=== PATIENT | female | born 1980 | race Caucasian/White ===

== ENCOUNTER 2021-05-28 07:16 | Observation (INO) | payer OTHER ==
[2021-05-28] MEDS ORDERED: SODIUM CHLORIDE 0.9% 1,000 ML IV STA (07:28)
[2021-05-28] MEDS ORDERED: IBUPROFEN 600 MG TAB PO STA (07:44)
[2021-05-28] MEDS ORDERED: cefTRIAXone IN SWFI 1,000 MG/10 ML SYRINGE IVP STA (07:44)
[2021-05-28] MEDS ORDERED: VANCOMYCIN IV PER PHARMACY 1 EACH MISC MISCELLANE PRN (07:45)
[2021-05-28] MEDS ORDERED: VANCOMYCIN 1,500 MG in SODIUM CHLORIDE 0.9% 250 ML IVPB STA (07:47)
--- NOTE | 2021-05-28 08:25 | ED ---
General Adult HPI - General Chief complaint: Recheck/Abnormal Lab/Rx Stated complaint: Breast Pain Time Seen by Provider: 05/28/21 07:21 Source: patient, family, RN notes reviewed, old records reviewed Mode of arrival: ambulatory Limitations: no limitations - History of Present Illness Initial comments: 40-year-old female otherwise healthy presenting with right breast pain and swelling which she has noted over the past several days. Patient initially noted tenderness and subsequently noticed a black swollen area below the right nipple. She is a nondiabetic, no chronic medical conditions. She has had low grade fevers. No vomiting. No abdominal pain. No URI symptoms. No dysuria. - Related Data Home Medications Medication Instructions Recorded Confirmed No Known Home Medications 05/28/21 05/28/21 Allergies Allergy/AdvReac Type Severity Reaction Status Date / Time codeine AdvReac Vomiting Verified 05/28/21 08:14 [From Tylenol-Codeine #3] Review of Systems ROS Statement: Those systems with pertinent positive or pertinent negative responses have been documented in the HPI. ROS Other: All systems not noted in ROS Statement are negative. Past Medical History Past Medical History: No Reported History History of Any Multi-Drug Resistant Organisms: None Reported Past Surgical History: Section Past Psychological History: No Psychological Hx Reported Smoking Status: Current every day smoker Past Alcohol Use History: Rare Past Drug Use History: None Reported General Exam Limitations: no limitations General appearance: alert, in no apparent distress Head exam: Present: atraumatic, normocephalic Eye exam: Present: normal appearance, PERRL ENT exam: Present: mucous membranes dry Neck exam: Present: normal inspection. Absent: tenderness, meningismus Respiratory exam: Present: normal lung sounds bilaterally. Absent: respiratory distress Cardiovascular Exam: Present: normal rhythm, tachycardia GI/Abdominal exam: Present: soft. Absent: distended, tenderness, guarding, rebound Extremities exam: Present: normal inspection, normal capillary refill. Absent: pedal edema Neurological exam: Present: alert, oriented X3 Psychiatric exam: Present: normal affect, normal mood Skin exam: Present: warm, other (Right breast exam: There is a large fluctuant area just inferior to the right nipple approximately 4 cm. The remainder of the lateral aspect of the breast is erythematous consistent with an adjacent cellulitis. No drainage at this time.) Course Vital Signs 05/28/21 05/28/21 07:22 08:25 Temperature 100.7 F H Pulse Rate 131 H Respiratory 18 18 Rate Blood Pressure 141/85 O2 Sat by Pulse 97 Oximetry Medical Decision Making - Medical Decision Making 40-year-old female presenting with pain and swelling to the right breast. She has a large abscess with associated cellulitis. She is febrile and tachycardic upon arrival. Blood cultures are obtained, IV antibiotics are initiated. She has an elevated white blood cell count. I did discuss case with Dr. Olvera covering for general surgery who will admit this patient for incision and drainage. - Lab Data Result diagrams: 05/28/21 08:32 05/28/21 08:32 Lab Results 05/28/21 05/28/21 05/28/21 Range/Units 08:32 08:32 08:32 WBC 17.8 H (3.8-10.6) k/uL RBC 4.37 (3.80-5.40) m/uL Hgb 11.6 (11.4-16.0) gm/dL Hct 34.5 (34.0-46.0) % MCV 78.9 L (80.0-100.0) fL MCH 26.5 (25.0-35.0) pg MCHC 33.5 (31.0-37.0) g/dL RDW 13.6 (11.5-15.5) % Plt Count 434 (150-450) k/uL MPV 7.0 Neutrophils % 84 % Lymphocytes % 9 % Monocytes % 6 % Eosinophils % 0 % Basophils % 0 % Neutrophils # 14.8 H (1.3-7.7) k/uL Lymphocytes # 1.6 (1.0-4.8) k/uL Monocytes # 1.0 (0-1.0) k/uL Eosinophils # 0.1 (0-0.7) k/uL Basophils # 0.1 (0-0.2) k/uL PT (9.0-12.0) sec INR (<1.2) APTT (22.0-30.0) sec Sodium 138 (137-145) mmol/L Potassium 3.5 (3.5-5.1) mmol/L Chloride 101 (98-107) mmol/L Carbon Dioxide 27 (22-30) mmol/L Anion Gap 10 mmol/L BUN 4 L (7-17) mg/dL Creatinine 0.47 L (0.52-1.04) mg/dL Est GFR (CKD-EPI)AfAm >90 (>60 ml/min/1.73 sqM) Est GFR (CKD-EPI)NonAf >90 (>60 ml/min/1.73 sqM) Glucose 174 H (74-99) mg/dL Plasma Lactic Acid Colt 0.8 (0.7-2.0) mmol/L Calcium 9.8 (8.4-10.2) mg/dL Total Bilirubin 0.5 (0.2-1.3) mg/dL AST 28 (14-36) U/L ALT 31 (4-34) U/L Alkaline Phosphatase 128 H (38-126) U/L Total Protein 7.1 (6.3-8.2) g/dL Albumin 3.9 (3.5-5.0) g/dL Urine Color Urine Appearance (Clear) Urine pH (5.0-8.0) Ur Specific [place] (1.001-1.035) Urine Protein (Negative) Urine Glucose (UA) (Negative) Urine Ketones (Negative) Urine Blood (Negative) Urine Nitrite (Negative) Urine Bilirubin (Negative) Urine Urobilinogen (<2.0) mg/dL Ur Leukocyte Esterase (Negative) Urine RBC (0-5) /hpf Urine WBC (0-5) /hpf Ur Squamous Epith Cells (0-4) /hpf Urine Bacteria (None) /hpf Urine HCG, Qual (Not Detectd) 05/28/21 05/28/21 05/28/21 Range/Units 08:32 08:32 08:32 WBC (3.8-10.6) k/uL RBC (3.80-5.40) m/uL Hgb (11.4-16.0) gm/dL Hct (34.0-46.0) % MCV (80.0-100.0) fL MCH (25.0-35.0) pg MCHC (31.0-37.0) g/dL RDW (11.5-15.5) % Plt Count (150-450) k/uL MPV Neutrophils % % Lymphocytes % % Monocytes % % Eosinophils % % Basophils % % Neutrophils # (1.3-7.7) k/uL Lymphocytes # (1.0-4.8) k/uL Monocytes # (0-1.0) k/uL Eosinophils # (0-0.7) k/uL Basophils # (0-0.2) k/uL PT 10.8 (9.0-12.0) sec INR 1.0 (<1.2) APTT 23.0 (22.0-30.0) sec Sodium (137-145) mmol/L Potassium (3.5-5.1) mmol/L Chloride (98-107) mmol/L Carbon Dioxide (22-30) mmol/L Anion Gap mmol/L BUN (7-17) mg/dL Creatinine (0.52-1.04) mg/dL Est GFR (CKD-EPI)AfAm (>60 ml/min/1.73 sqM) Est GFR (CKD-EPI)NonAf (>60 ml/min/1.73 sqM) Glucose (74-99) mg/dL Plasma Lactic Acid Colt (0.7-2.0) mmol/L Calcium (8.4-10.2) mg/dL Total Bilirubin (0.2-1.3) mg/dL AST (14-36) U/L ALT (4-34) U/L Alkaline Phosphatase (38-126) U/L Total Protein (6.3-8.2) g/dL Albumin (3.5-5.0) g/dL Urine Color Light Yellow Urine Appearance Clear (Clear) Urine pH 6.0 (5.0-8.0) Ur Specific [place] 1.002 (1.001-1.035) Urine Protein Negative (Negative) Urine Glucose (UA) Negative (Negative) Urine Ketones Trace H (Negative) Urine Blood Negative (Negative) Urine Nitrite Negative (Negative) Urine Bilirubin Negative (Negative) Urine Urobilinogen <2.0 (<2.0) mg/dL Ur Leukocyte Esterase Small H (Negative) Urine RBC 2 (0-5) /hpf Urine WBC 6 H (0-5) /hpf Ur Squamous Epith Cells 2 (0-4) /hpf Urine Bacteria Rare H (None) /hpf Urine HCG, Qual Not Detected (Not Detectd) Disposition Clinical Impression: Cellulitis, Breast abscess Disposition: ADMITTED IP TO THIS HOSP Condition: Stable Is patient prescribed a controlled substance at d/c from ED?: No Referrals: Nidia Santamaria DO [Primary Care Provider] - 1-2 days Decision to Admit Reason: Admit from EC Decision Date: 05/28/21 Decision Time: 09:36
[2021-05-28 08:40] LABS: Basophils # (A) 0.1 k/uL (0-0.2); Basophils % (A) 0 %; Eosinophils # (A) 0.1 k/uL (0-0.7); Eosinophils % (A) 0 %; HCT 34.5 % (34.0-46.0); HGB 11.6 gm/dL (11.4-16.0); Lymphocytes # (A) 1.6 k/uL (1.0-4.8); Lymphocytes % (A) 9 %; MCH 26.5 pg (25.0-35.0); MCHC 33.5 g/dL (31.0-37.0); MCV 78.9 fL (80.0-100.0); Monocytes % (A) 6 %; Neutrophils # (A) 14.8 k/uL (1.3-7.7); Neutrophils % (A) 84 %; Platelet Count 434 k/uL (150-450); RBC 4.37 m/uL (3.80-5.40); RDW 13.6 % (11.5-15.5); WBC 17.8 k/uL (3.8-10.6)
[2021-05-28 08:50] LABS: Prothrombin Time 10.8 sec (9.0-12.0)
[2021-05-28 08:57] LABS: Appearance,Urine Clear (Clear); Bacteria,Urine Rare /hpf; Bilirubin,Urine Negative (Negative); Blood,Urine Negative (Negative); Color,Urine Light Yellow; Glucose,Urine (UA) Negative (Negative); Ketones,Urine Trace (Negative); Leukocyte Esterase,Urine Small (Negative); Nitrite,Urine Negative (Negative); Protein,Urine Negative (Negative); RBC,Urine 2 /hpf (0-5); Specific Gravity,Urine 1.002 (1.001-1.035); Squamous Epithelial Cell,Urine 2 /hpf (0-4); Urobilinogen,Urine <2.0 mg/dL (<2.0); WBC,Urine 6 /hpf (0-5)
[2021-05-28 09:00] LABS: ALT 31 U/L (4-34); AST 28 U/L (14-36); African American GFR (CKD) >90 (>60 ml/min/1.73 sqM); Albumin 3.9 g/dL (3.5-5.0); Alkaline Phosphatase 128 U/L (38-126); Anion Gap 10 mmol/L; Blood Urea Nitrogen 4 mg/dL (7-17); Calcium 9.8 mg/dL (8.4-10.2); Carbon Dioxide 27 mmol/L (22-30); Chloride 101 mmol/L (98-107); Glucose 174 mg/dL (74-99); Non-African American GFR(CKD) >90 (>60 ml/min/1.73 sqM); Potassium 3.5 mmol/L (3.5-5.1); Sodium 138 mmol/L (137-145); Total Bilirubin 0.5 mg/dL (0.2-1.3); Total Protein 7.1 g/dL (6.3-8.2)
[2021-05-28] MEDS ORDERED: HYDROmorphone 0.5 MG/0.5 ML SYRINGE IVP PRN (09:33)
[2021-05-28] MEDS ORDERED: NALOXONE 0.4 MG/ML 1 ML VIAL IV PRN (09:33)
[2021-05-28] MEDS: SODIUM CHLORIDE 0.9% 1,000 ML IV SCH ×2 (09:45→20:38)
--- NOTE | 2021-05-28 13:30 | P.GSHP ---
History of Present Illness H&P Date: 05/28/21 CHIEF COMPLAINT: Right breast abscess HISTORY OF PRESENT ILLNESS: This is a 40-year-old female with a known past medical history of nicotine dependence. She presents to the hospital with complaints of right breast pain and swelling over the last 5 days. Patient has an ulceration at the 6 o'clock position on the right breast. It has a blackened area. She's been having low-grade fevers. She denies any nausea or vomiting. She did have a temp of 100.7 and was tachycardic on admission. She has been started on IV antibiotics. Patient seen and examined with Dr. mcneal PAST MEDICAL HISTORY: See list. PAST SURGICAL HISTORY: See list. MEDICATIONS: See list. ALLERGIES: See list. SOCIAL HISTORY: No illicit drug use. REVIEW OF SYSTEMS: CONSTITUTIONAL: Denies fever or chills. HEENT: Denies blurred vision, vision changes, or eye pain. Denies hemoptysis CARDIOVASCULAR: Denies chest pain or pressure. RESPIRATORY: No shortness of breath. GASTROINTESTINAL: See HPI for pertinent findings HEMATOLOGIC: Denies bleeding disorders. GENITOURINARY: Denies any blood in urine or increased urinary frequency. SKIN: Denies pruitis. Denies rash. PHYSICAL EXAM: VITAL SIGNS: Reviewed GENERAL: Well-developed in no acute distress. HEENT: No sclera icterus. Extraocular movements grossly intact. Moist buccal mucosa. Head is atraumatic, normocephalic. No nasal drainage. ABDOMEN: Soft. Nondistended. Nondistended NEUROLOGIC: Alert and oriented. Cranial nerves II through XII grossly intact. Breast: Right breast 6 o'clock position underneath the nipple there is a abscess about the size of a quarter with surrounding erythema. The area is also blackened. LABORATORY DATA: WBC 17.8 hemoglobin 11.6 sodium 138 potassium is 3.5 creatinine 0.47 lactic 0.8 IMAGING: ASSESSMENT: 1. Right breast abscess PLAN: -Patient scheduled for I&D of right breast with Dr. Mcneal tomorrow, 05/29/2021 -Keep patient nothing by mouth after midnight -Check right breast ultrasound -Continue IV antibiotics -Replace potassium -Consult medical service -Continue pain medication as needed Physician [employer] note has been reviewed by physician. Signing provider agrees with the documented findings, assessment, and plan of care. Past Medical History Past Medical History: No Reported History History of Any Multi-Drug Resistant Organisms: None Reported Past Surgical History: Section Past Anesthesia/Blood Transfusion Reactions: No Reported Reaction Past Psychological History: No Psychological Hx Reported Smoking Status: Current every day smoker Past Alcohol Use History: Rare Past Drug Use History: None Reported - Past Family History Mother Family Medical History: No Reported History Father Additional Family Medical History / Comment(s): cardiac heat stroke Medications and Allergies Home Medications Medication Instructions Recorded Confirmed Type No Known Home Medications 05/28/21 05/28/21 History Allergies Allergy/AdvReac Type Severity Reaction Status Date / Time codeine AdvReac Vomiting Verified 05/28/21 08:14 [From Tylenol-Codeine #3] Surgical - Exam Vital Signs Temp Pulse Resp BP Pulse Ox 100.7 F H 131 H 18 141/85 97 05/28/21 07:22 05/28/21 07:22 05/28/21 07:22 05/28/21 07:22 05/28/21 07:22 Results - Labs 05/28/21 08:32 05/28/21 08:32 Abnormal Lab Results - Last 24 Hours (Table) 05/28/21 05/28/21 05/28/21 Range/Units 08:32 08:32 08:32 WBC 17.8 H (3.8-10.6) k/uL MCV 78.9 L (80.0-100.0) fL Neutrophils # 14.8 H (1.3-7.7) k/uL BUN 4 L (7-17) mg/dL Creatinine 0.47 L (0.52-1.04) mg/dL Glucose 174 H (74-99) mg/dL Alkaline Phosphatase 128 H (38-126) U/L Urine Ketones Trace H (Negative) Ur Leukocyte Esterase Small H (Negative) Urine WBC 6 H (0-5) /hpf Urine Bacteria Rare H (None) /hpf Diabetes panel 05/28/21 Range/Units 08:32 Sodium 138 (137-145) mmol/L Potassium 3.5 (3.5-5.1) mmol/L Chloride 101 (98-107) mmol/L Carbon Dioxide 27 (22-30) mmol/L BUN 4 L (7-17) mg/dL Creatinine 0.47 L (0.52-1.04) mg/dL Glucose 174 H (74-99) mg/dL Calcium 9.8 (8.4-10.2) mg/dL AST 28 (14-36) U/L ALT 31 (4-34) U/L Alkaline Phosphatase 128 H (38-126) U/L Total Protein 7.1 (6.3-8.2) g/dL Albumin 3.9 (3.5-5.0) g/dL Calcium panel 05/28/21 Range/Units 08:32 Calcium 9.8 (8.4-10.2) mg/dL Albumin 3.9 (3.5-5.0) g/dL Pituitary panel 05/28/21 Range/Units 08:32 Sodium 138 (137-145) mmol/L Potassium 3.5 (3.5-5.1) mmol/L Chloride 101 (98-107) mmol/L Carbon Dioxide 27 (22-30) mmol/L BUN 4 L (7-17) mg/dL Creatinine 0.47 L (0.52-1.04) mg/dL Glucose 174 H (74-99) mg/dL Calcium 9.8 (8.4-10.2) mg/dL Adrenal panel 05/28/21 Range/Units 08:32 Sodium 138 (137-145) mmol/L Potassium 3.5 (3.5-5.1) mmol/L Chloride 101 (98-107) mmol/L Carbon Dioxide 27 (22-30) mmol/L BUN 4 L (7-17) mg/dL Creatinine 0.47 L (0.52-1.04) mg/dL Glucose 174 H (74-99) mg/dL Calcium 9.8 (8.4-10.2) mg/dL Total Bilirubin 0.5 (0.2-1.3) mg/dL AST 28 (14-36) U/L ALT 31 (4-34) U/L Alkaline Phosphatase 128 H (38-126) U/L Total Protein 7.1 (6.3-8.2) g/dL Albumin 3.9 (3.5-5.0) g/dL
[2021-05-28] MEDS ORDERED: POTASSIUM CHLORIDE ER 20 MEQ TAB.ER PO STA (13:31)
[2021-05-28] MEDS ORDERED: ONDANSETRON 4 MG/2 ML VIAL IVP PRN (13:32)
[2021-05-28] MEDS: PANTOPRAZOLE 40 MG TABLET PO SCH (13:43)
[2021-05-28] MEDS ORDERED: NICOTINE 14MG/24HR PATCH TRANSDERM PRN (14:02)
--- NOTE | 2021-05-28 14:25 | USB ---
Reason for exam: clinical finding. US Breast RT Right complete breast ultrasound includes all four quadrants, the retroareolar region and axilla. Finding demonstrates a 6.8 x 4.0cm lesion at the posterior nipple. Complex collection right posterior nipple hard red breast open sore 6 o'clock. Finding consistent with an abscess. ASSESSMENT: Suspicious, BI-RAD 4 RECOMMENDATION: Surgical consultation of the right breast.
--- NOTE | 2021-05-28 16:13 | P.CONS ---
History of Present Illness - Reason for Consult Breast abscess antibiotic management - History of Present Illness Patient is a 40-year-old female came in with complaints of the right breast swelling has been going on for about couple days with severe pain. Patient has some soreness which has been going on for about 5 days but redness and swelling started yesterday there was an ulceration and patient has a big abscess which intubated patient had temperature of 100.7 tachycardic on admission patient was septic. Patient was started on IV antibiotics that is vancomycin. Patient was also given a dose of Rocephin in ER. Patient denied any recent injury but couple weeks ago patient was in pool for long period of time. REVIEW OF SYSTEMS: CONSTITUTIONAL: No fever, no malaise, no fatigue. HEENT: No recent visual problems or hearing problems. Denied any sore throat. CARDIOVASCULAR: No chest pain, orthopnea, PND, no palpitations, no syncope. PULMONARY: No shortness of breath, no cough, no hemoptysis. GASTROINTESTINAL: No diarrhea, no nausea, no vomiting, no abdominal pain. NEUROLOGICAL: No headaches, no weakness, no numbness. HEMATOLOGICAL: Denies any bleeding or petechiae. GENITOURINARY: Denies any burning micturition, frequency, or urgency. MUSCULOSKELETAL/RHEUMATOLOGICAL: Denies any joint pain, swelling, or any muscle pain. ENDOCRINE: Denies any polyuria or polydipsia. The rest of the 14-point review of systems is negative. PHYSICAL EXAMINATION: GENERAL: The patient is alert and oriented x3, not in any acute distress. Well developed, well nourished. HEENT: Pupils are round and equally reacting to light. EOMI. No scleral icterus. No conjunctival pallor. Normocephalic, atraumatic. No pharyngeal erythema. No thyromegaly. CARDIOVASCULAR: S1 and S2 present. No murmurs, rubs, or gallops. Breasts: Significantly swollen on the right side and there is a small ulceration with a blackish discoloration below the nipple area significant swelling or tenderness local is of temperature. PULMONARY: Chest is clear to auscultation, no wheezing or crackles. ABDOMEN: Soft, nontender, nondistended, normoactive bowel sounds. No palpable organomegaly. MUSCULOSKELETAL: No joint swelling or deformity. EXTREMITIES: No cyanosis, clubbing, or pedal edema. NEUROLOGICAL: Gross neurological examination did not reveal any focal deficits. SKIN: As mentioned above Assessment and plan Right breast abscess which will need incision and drainage. It is appropriate that that we continue vancomycin to cover skin art. Cultures will be obtained from IND -Sepsis secondary to breast abscess: Patient is on IV fluids which will be continued -GI prophylaxis with Protonix Past Medical History Past Medical History: No Reported History History of Any Multi-Drug Resistant Organisms: None Reported Past Surgical History: Section Past Anesthesia/Blood Transfusion Reactions: No Reported Reaction Past Psychological History: No Psychological Hx Reported Smoking Status: Current every day smoker Past Alcohol Use History: Rare Past Drug Use History: None Reported - Past Family History Mother Family Medical History: No Reported History Father Additional Family Medical History / Comment(s): cardiac heat stroke Medications and Allergies Home Medications Medication Instructions Recorded Confirmed Type No Known Home Medications 05/28/21 05/28/21 History Allergies Allergy/AdvReac Type Severity Reaction Status Date / Time codeine AdvReac Vomiting Verified 05/28/21 08:14 [From Tylenol-Codeine #3] Physical Exam Vitals: Vital Signs Temp Pulse Pulse Resp BP BP Pulse Ox 05/28/21 15:55 136/80 05/28/21 14:44 98.1 F 103 H 16 101/65 98 05/28/21 11:56 89 98 05/28/21 11:54 112 H 05/28/21 10:52 98.9 F 112 H 17 142/88 96 05/28/21 10:17 99.7 F H 75 18 138/69 97 05/28/21 09:45 99.7 F H 18 05/28/21 08:25 18 05/28/21 07:22 100.7 F H 131 H 18 141/85 97 Intake and Output 05/28/21 05/28/21 05/28/21 06:59 14:59 22:59 Other: Weight 98.3 kg Results CBC & Chem 7: 05/28/21 08:32 05/28/21 08:32 Labs: Abnormal Lab Results - Last 24 Hours (Table) 05/28/21 05/28/21 05/28/21 Range/Units 08:32 08:32 08:32 WBC 17.8 H (3.8-10.6) k/uL MCV 78.9 L (80.0-100.0) fL Neutrophils # 14.8 H (1.3-7.7) k/uL BUN 4 L (7-17) mg/dL Creatinine 0.47 L (0.52-1.04) mg/dL Glucose 174 H (74-99) mg/dL Alkaline Phosphatase 128 H (38-126) U/L Urine Ketones Trace H (Negative) Ur Leukocyte Esterase Small H (Negative) Urine WBC 6 H (0-5) /hpf Urine Bacteria Rare H (None) /hpf
[2021-05-28] MEDS: VANCOMYCIN 1,500 MG in SODIUM CHLORIDE 0.9% 250 ML IVPB SCH ×2 (16:33→23:59)
[2021-05-28] MEDS: IBUPROFEN 400 MG TAB PO PRN (17:40)
[2021-05-28] MEDS: HEPARIN SODIUM,PORCINE/PF 5,000 UNIT/0.5 ML SYRINGE SQ SCH (20:38)
[2021-05-29] MEDS ORDERED: VANCOMYCIN TROUGH DUE 1 EACH MISC MISCELLANE ONE (07:00)
[2021-05-29 07:08] LABS: Basophils # (A) 0.1 k/uL (0-0.2); Basophils % (A) 1 %; Eosinophils # (A) 0.1 k/uL (0-0.7); Eosinophils % (A) 1 %; HCT 32.7 % (34.0-46.0); HGB 10.6 gm/dL (11.4-16.0); Hypochromasia Slight; Lymphocytes # (A) 1.5 k/uL (1.0-4.8); Lymphocytes % (A) 12 %; MCH 26.3 pg (25.0-35.0); MCHC 32.4 g/dL (31.0-37.0); MCV 81.2 fL (80.0-100.0); Monocytes # (A) 0.8 k/uL (0-1.0); Monocytes % (A) 7 %; Neutrophils # (A) 9.2 k/uL (1.3-7.7); Neutrophils % (A) 77 %; Platelet Count 412 k/uL (150-450); RBC 4.03 m/uL (3.80-5.40); RDW 13.7 % (11.5-15.5); WBC 11.9 k/uL (3.8-10.6)
[2021-05-29 07:22] LABS: African American GFR (CKD) >90 (>60 ml/min/1.73 sqM); Anion Gap 9 mmol/L; Blood Urea Nitrogen 5 mg/dL (7-17); Calcium 9.2 mg/dL (8.4-10.2); Carbon Dioxide 25 mmol/L (22-30); Chloride 107 mmol/L (98-107); Glucose 146 mg/dL (74-99); Non-African American GFR(CKD) >90 (>60 ml/min/1.73 sqM); Potassium 3.7 mmol/L (3.5-5.1); Sodium 141 mmol/L (137-145)
[2021-05-29] MEDS: PANTOPRAZOLE 40 MG TABLET PO SCH (07:56)
[2021-05-29] MEDS: VANCOMYCIN 1,500 MG in SODIUM CHLORIDE 0.9% 250 ML IVPB SCH ×3 (08:43→23:52)
[2021-05-29] MEDS: HEPARIN SODIUM,PORCINE/PF 5,000 UNIT/0.5 ML SYRINGE SQ SCH ×2 (09:13→20:18)
[2021-05-29] MEDS: IBUPROFEN 400 MG TAB PO PRN ×2 (12:28)
[2021-05-29] MEDS ORDERED: IV FLUID CONTINUATION 1,000 ML IV ONE ×2 (13:16→14:20)
[2021-05-29] MEDS ORDERED: MIDAZOLAM 2 MG/2 ML VIAL IV ONE (13:25)
[2021-05-29] MEDS ORDERED: ONDANSETRON 4 MG/2 ML VIAL IVP ONE (13:25)
[2021-05-29] MEDS ORDERED: DEXAMETHASONE SOD PHOSPHATE 4 MG/ML 1 ML VIAL IV ONE (13:25)
[2021-05-29] MEDS ORDERED: SUCCINYLCHOLINE CHLORIDE 100 MG/5 ML SYR IV ONE (13:42)
[2021-05-29] MEDS ORDERED: KETOROLAC 15 MG/ML 1 ML VIAL ONE (13:42)
[2021-05-29] MEDS ORDERED: PROPOFOL 10 MG/ML 20 ML VIAL IV ONE (13:42)
[2021-05-29] MEDS ORDERED: fentaNYL (PF) 50 MCG/ML 2 ML AMP ONE (13:42)
[2021-05-29] MEDS ORDERED: MIDAZOLAM 2 MG/2 ML VIAL ONE (13:42)
[2021-05-29] MEDS ORDERED: LIDOCAINE 1% INJ 10MG/ML (20 ML MDV) ONE (13:42)
--- NOTE | 2021-05-29 14:23 | P.OP ---
Date of Procedure: 05/29/21 Preoperative Diagnosis: Right breast abscess Postoperative Diagnosis: Right breast abscess Procedure(s) Performed: Incision and drainage right breast abscess Debridement necrotic skin Anesthesia: BETTY Surgeon: Rk Olvera Estimated Blood Loss (ml): 10 Pathology: other (Necrotic skin, culture) Condition: stable Disposition: PACU Description of Procedure: Patient's placed on the endoscopy table in the lateral position. She received general endotracheal tube anesthesia. Her right breast was prepped and draped usual fashion. The patient had a breast abscess there is a portion of necrotic skin measuring prostate 2 x 2 centimeters at the 6 o'clock position just below the areola complex. Using a 15 blade the skin was incised and then the abscess cavity is entered. The abscess cavity was cultured. Approximately 15 mL appear fluid was removed. The necrotic skin was sharply debrided using a pair of Metzenbaum scissors. The specimen sent to pathology. The wound was then packed with wet-to-dry Kerlix. Patient top she will was sent to recovery room in stable condition.
--- NOTE | 2021-05-29 17:00 | P.PN ---
Subjective - History of Present Illness Patient is a 40-year-old female came in with complaints of the right breast swelling has been going on for about couple days with severe pain. Patient has some soreness which has been going on for about 5 days but redness and swelling started yesterday there was an ulceration and patient has a big abscess which intubated patient had temperature of 100.7 tachycardic on admission patient was septic. Patient was started on IV antibiotics that is vancomycin. Patient was also given a dose of Rocephin in ER. Patient denied any recent injury but couple weeks ago patient was in pool for long period of time. 05/29/2021 Patient side breast abscess started draining spontaneously from which will obtain cultures. Patient will undergo abscess drainage today Constitutional: Denied any fatigue denied any fever. Cardio vascular: denied any chest pain, palpitations Gastrointestinal denied any nausea vomiting Pulmonary: Denied any shortness of breath cough Neurologic denied any new focal deficits All inpatient medications were reviewed and appropriate changes in these medications as dictated in the interval history and assessment and plan. PHYSICAL EXAMINATION: GENERAL: The patient is alert and oriented x3, not in any acute distress. Well developed, well nourished. HEENT: Pupils are round and equally reacting to light. EOMI. No scleral icterus. No conjunctival pallor. Normocephalic, atraumatic. No pharyngeal erythema. No thyromegaly. CARDIOVASCULAR: S1 and S2 present. No murmurs, rubs, or gallops. Breasts: Significantly swollen on the right side and there is a small ulceration with a blackish discoloration below the nipple area significant swelling or tenderness local is of temperature. PULMONARY: Chest is clear to auscultation, no wheezing or crackles. ABDOMEN: Soft, nontender, nondistended, normoactive bowel sounds. No palpable organomegaly. MUSCULOSKELETAL: No joint swelling or deformity. EXTREMITIES: No cyanosis, clubbing, or pedal edema. NEUROLOGICAL: Gross neurological examination did not reveal any focal deficits. SKIN: As mentioned above Assessment and plan Right breast abscess which will need incision and drainage. It is appropriate that that we continue vancomycin to cover skin art. Cultures will be obtained -Sepsis secondary to breast abscess: Patient is on IV fluids which will be continued -GI prophylaxis with Protonix Objective - Vital Signs Vital signs: Vital Signs Temp 98.0 F 05/29/21 15:10 Pulse 95 05/29/21 15:10 Resp 18 05/29/21 15:10 BP 118/76 05/29/21 15:10 Pulse Ox 98 05/29/21 15:10 Intake & Output 05/28/21 05/29/21 05/29/21 18:59 06:59 18:59 Intake Total 120 0 400 Balance 120 0 400 Weight 98.3 kg Intake: IV 400 Oral 120 0 Other: Voiding Method Toilet # Voids 2 1 - Labs CBC & Chem 7: 05/29/21 06:47 05/29/21 06:47 Labs: Abnormal Lab Results - Last 24 Hours (Table) 05/29/21 05/29/21 Range/Units 06:47 06:47 WBC 11.9 H (3.8-10.6) k/uL Hgb 10.6 L (11.4-16.0) gm/dL Hct 32.7 L (34.0-46.0) % Neutrophils # 9.2 H (1.3-7.7) k/uL BUN 5 L (7-17) mg/dL Creatinine 0.40 L (0.52-1.04) mg/dL Glucose 146 H (74-99) mg/dL Microbiology - Last 24 Hours (Table) 05/28/21 08:32 Blood Culture - Preliminary Blood No Growth after 24 hours 05/28/21 08:32 Blood Culture - Preliminary Blood No Growth after 24 hours
[2021-05-29] MEDS: SODIUM CHLORIDE 0.9% 1,000 ML IV SCH ×2 (20:19→21:47)
[2021-05-30] MEDS: PANTOPRAZOLE 40 MG TABLET PO SCH (06:16)
[2021-05-30] MEDS: SODIUM CHLORIDE 0.9% 1,000 ML IV SCH (06:17)
[2021-05-30 08:47] VITALS: BP 121/73; PULSE 80; RESP 18; TEMP 97.4
[2021-05-30] MEDS: HEPARIN SODIUM,PORCINE/PF 5,000 UNIT/0.5 ML SYRINGE SQ SCH (08:50)
[2021-05-30] MEDS: VANCOMYCIN 1,500 MG in SODIUM CHLORIDE 0.9% 250 ML IVPB SCH (08:50)
[2021-05-30 08:53] LABS: Basophils % (A) 0 %; Eosinophils % (A) 0 %; HCT 28.9 % (34.0-46.0); HGB 9.4 gm/dL (11.4-16.0); Hypochromasia Moderate; Lymphocytes % (A) 18 %; MCH 26.5 pg (25.0-35.0); MCHC 32.4 g/dL (31.0-37.0); MCV 81.6 fL (80.0-100.0); Mean Platelet Volume 7.2; Monocytes # (A) 0.6 k/uL (0-1.0); Monocytes % (A) 6 %; Neutrophils # (A) 8.1 k/uL (1.3-7.7); Neutrophils % (A) 74 %; Platelet Count 386 k/uL (150-450); RBC 3.54 m/uL (3.80-5.40); RDW 13.6 % (11.5-15.5); WBC 10.9 k/uL (3.8-10.6)
[2021-05-30] MEDS ORDERED: CEFEPIME 2 GM in SODIUM CHLORIDE 0.9% 100 ML IVPB SCH (12:00)
--- NOTE | 2021-05-30 13:29 | P.DS ---
Providers Date of admission: 05/28/21 09:33 Expected date of discharge: 05/30/21 Attending physician: Rk Olvera Consults: 05/28/21 10:22 Consult Physician Routine Consulting Provider: Gwendolyn Maki Consult Reason/Comments: Medical management Do you want consulting provider notified?: Yes 05/30/21 10:45 Consult Physician Routine Consulting Provider: Dagoberto Granda Consult Reason/Comments: Breast Abscess Do you want consulting provider notified?: Yes Primary care physician: Nidia Santamaria Hospital Course: Discharge diagnosis 1. Right breast abscess status post incision and drainage of right breast abscess and debridement of necrotic skin Hospital course This is a 40-year-old female with a known past medical history of nicotine dependence. She presents to the hospital with complaints of right breast pain and swelling over the last 5 days. Patient has an ulceration at the 6 o'clock position on the right breast below nipple. It has a blackened area. She's been having low-grade fevers. She denies any nausea or vomiting. She did have a temp of 100.7 and was tachycardic on admission. She has been started on IV antibiotics. Patient is status post incision and drainage of right breast abscess and debridement of necrotic skin. She tolerated surgery well. She is tolerating diet. Her pain is controlled. She's afebrile. She has been up and ambulating. Her white count is trending down. Patient is stable for discharge. Please refer to chart for any further details. Physician [employer] [place] note has been reviewed by physician. Signing provider agrees with the documented findings, assessment, and plan of care. Patient Condition at Discharge: Stable Plan - Discharge Summary Discharge Rx Participant: No New Discharge Prescriptions: New Sulfamethox-Tmp 800-160Mg [Bactrim DS 800-160 mg] 1 tab PO Q12HR #14 tab Nicotine 21Mg/24Hr Patch [Habitrol] 1 patch TRANSDERM DAILY #30 patch Ibuprofen [Motrin] 600 mg PO Q8HR PRN #30 tab PRN Reason: Pain Fluconazole [Diflucan] 150 mg PO ONCE #1 tab Discharge Medication List Fluconazole [Diflucan] 150 mg PO ONCE #1 tab 05/30/21 [Rx] Ibuprofen [Motrin] 600 mg PO Q8HR PRN #30 tab 05/30/21 [Rx] Nicotine 21Mg/24Hr Patch [Habitrol] 1 patch TRANSDERM DAILY #30 patch 05/30/21 [Rx] Sulfamethox-Tmp 800-160Mg [Bactrim DS 800-160 mg] 1 tab PO Q12HR #14 tab 05/30/21 [Rx] Follow up Appointment(s)/Referral(s): Nidia Santamaria DO [Primary Care Provider] - 1-2 days Rk Olvera MD [STAFF PHYSICIAN] - 1 Week Activity/Diet/Wound Care/Special Instructions: Please arrange patient to have follow-up at wound care center Continue Kerlix dressing changes wet-to-dry daily Discharge Disposition: HOME SELF-CARE
[2021-05-30] MEDS ORDERED: NICOTINE 21MG/24HR PATCH TRANSDERM SCH (13:30)
--- NOTE | 2021-05-30 14:49 | P.PN ---
Subjective Progress Note Date: 05/30/21 - History of Present Illness Patient is a 40-year-old female came in with complaints of the right breast swelling has been going on for about couple days with severe pain. Patient has some soreness which has been going on for about 5 days but redness and swelling started yesterday there was an ulceration and patient has a big abscess which intubated patient had temperature of 100.7 tachycardic on admission patient was septic. Patient was started on IV antibiotics that is vancomycin. Patient was also given a dose of Rocephin in ER. Patient denied any recent injury but co uple weeks ago patient was in pool for long period of time. 05/29/2021 Patient side breast abscess started draining spontaneously from which will obtain cultures. Patient will undergo abscess drainage today 05/30/2021 Patient is seen this morning status post incision and drainage of the right b reast abscess with cultures showing beta hemolytic strep group C and she was maintained on IV antibiotics of vancomycin and will add cefepime and infectious disease was consulted. He is evaluated the patient recommending wound VAC and waiting for cultures are finalized to determine discharge antibiotics and patient continues to be adamant about going home and does not want to stay in the hospital any longer. The admitting team is discharging the patient and will follow-up closely in the outpatient setting and continue with Kerlix with wet-to-dry dressings and is being sent home on Bactrim. Will continue to watch the cultures and notify surgery if noticed any changes or sensitivities of the antibiotics. White blood count is trending down and is currently 10.9 hemoglobin is stable at 9.4. Constitutional: Denied any fatigue denied any fever. Cardio vascular: denied any chest pain, palpitations Gastrointestinal denied any nausea vomiting Pulmonary: Denied any shortness of breath cough Neurologic denied any new focal deficits All inpatient medications were reviewed and appropriate changes in these medications as dictated in the interval history and assessment and plan. Objective - Vital Signs Vital signs: Vital Signs Temp 97.4 F L 05/30/21 08:30 Pulse 80 05/30/21 08:30 Resp 18 05/30/21 08:30 BP 121/73 05/30/21 08:30 Pulse Ox 98 05/30/21 08:30 Intake & Output 05/29/21 05/30/21 05/30/21 18:59 06:59 18:59 Intake Total 640 800 Balance 640 800 Intake: IV 400 Oral 240 800 Other: Voiding Method Toilet # Voids 1 1 - Exam GENERAL: The patient is alert and oriented x3, not in any acute distress. Well developed, well nourished. HEENT: Pupils are round and equally reacting to light. EOMI. No scleral icterus. No conjunctival pallor. Normocephalic, atraumatic. No pharyngeal erythema. No thyromegaly. CARDIOVASCULAR: S1 and S2 present. No murmurs, rubs, or gallops. Breasts: Significantly swollen on the right side and there is a small ulceration with a blackish discoloration below the nipple area significant swelling , tenderness, localization of temperature. PULMONARY: Chest is clear to auscultation, no wheezing or crackles. ABDOMEN: Soft, nontender, nondistended, normoactive bowel sounds. No palpable organomegaly. MUSCULOSKELETAL: No joint swelling or deformity. EXTREMITIES: No cyanosis, clubbing, or pedal edema. NEUROLOGICAL: Gross neurological examination did not reveal any focal deficits. SKIN: Status post incision and drainage with continued drainage and discharge noted surgical packing noted as well - Labs CBC & Chem 7: 05/30/21 08:19 05/29/21 06:47 Labs: Abnormal Lab Results - Last 24 Hours (Table) 05/30/21 Range/Units 08:19 WBC 10.9 H (3.8-10.6) k/uL RBC 3.54 L (3.80-5.40) m/uL Hgb 9.4 L (11.4-16.0) gm/dL Hct 28.9 L (34.0-46.0) % Neutrophils # 8.1 H (1.3-7.7) k/uL Microbiology - Last 24 Hours (Table) 05/29/21 12:00 Gram Stain - Preliminary Breast - Right Wound Culture - Preliminary 05/29/21 12:00 Anaerobic Culture - Preliminary Breast - Right 05/28/21 08:32 Blood Culture - Preliminary Blood No Growth after 24 hours 05/28/21 08:32 Blood Culture - Preliminary Blood No Growth after 24 hours Assessment and Plan Assessment: -Right breast abscess status post need incision and drainage. Cultures obtained preliminary showing gram-negative which are now showing beta hemolytic strep group C and patient continues on cefepime with vancomycin and infectious disease consulted -Leukocytosis secondary to above, improving -Sepsis secondary to breast abscess, present on admission -GI prophylaxis with Protonix Plan: Recommend to continue with IV antibiotics and patient was on vancomycin and cefepime added as preliminary cultures from the I&D were showing gram-negative b acilli and is currently beta hemolytic strep group C and infectious disease was consulted. Infectious disease recommending a wound VAC as the abscess continues to have drainage noted on the dressings. Patient Is adamant about going home and surgery will be discharging on Bactrim. Will continue to follow the cultures and discuss with surgery if possible discharge antibiotics need to be changed. Patient has been afebrile with no reports of nausea or vomiting and is tolerating diet. Patient denies any chest pain or palpitations. Patient denies any shortness of breath. Will continue to follow with surgery during hospitalization. Thank you for this consultation.
== END 2021-05-30 14:50 | disposition home or self-care (01) ==
LOC: EC 07:16 → INTOOBSV 09:33 → 6PED 09:33 → UNDODISIN 05-30 14:50
PROVIDERS: ADMIT Surgery; ATTEND Surgery
DX: N61.1 Abscess of the breast and nipple (principal); I96 Gangrene, not elsewhere classified; A41.9 Sepsis, unspecified organism; B95.4 Other streptococcus as the cause of diseases classified elsewhere; R00.0 Tachycardia, unspecified; F17.210 Nicotine dependence, cigarettes, uncomplicated; Z20.822 Contact with and (suspected) exposure to COVID-19; Z88.5 Allergy status to narcotic agent; Z82.49 Family history of ischemic heart disease and other diseases of the circulatory system
CPT/HCPCS: 19020; 97597; 96365; 96366; 96375; 99284; 36415; 81025 ×2; 88304; 80053; 80048; 83605; 85025 ×3; 80202; 85610; 85730; 81001; 87040; 87070; 87205; 87075; 87635; 76641; G0378 ×3; S4990 ×2; J2250; J3370 ×3; J1100; J2405; J2001; J0696; J3010; J1885; J0330; J2704; J1170; J1644 ×3; 96361; 96374; 99285